=== PATIENT | female | born 1990 | race Caucasian/White ===

== ENCOUNTER → 2018-08-08 16:08 | Outpatient (CLI) | payer OTHER, SELFPAY ==
[2018-08-08 19:29] LABS: Chlamydia Trachomatis by PCR Negative (Negative); Neisserai gonorrhoeae by PCR Negative (Negative); Probe Check PASS; Sample Adequacy Control PASS; Specimen Processing Control PASS
[2018-08-16 15:12] LABS: HPV HC, High Risk Negative (Negative)
== END ==
PROVIDERS: Visit Provider Obstetrics & Gynecology
DX: Z32.01 Encounter for pregnancy test, result positive (principal); Z12.4 Encounter for screening for malignant neoplasm of cervix; Z11.3 Encounter for screening for infections with a predominantly sexual mode of transmission
CPT/HCPCS: 87491; 87591; 87624; 88175; G0145

== ENCOUNTER → 2018-08-22 15:14 | Outpatient (CLI) | payer OTHER, SELFPAY ==
[2018-08-22 15:57] LABS: Absolute Lymphocyte Count 1.55 X10^3/ul (0.83-4.51); Absolute Neutrophil Count 7.1 X10^3/uL (2.0-7.7); Basophil# 0.03 X10^3/uL; Basophil% 0.3 % (0-1); Eosinophil# 0.15 X10^3/uL; Eosinophils% 1.6 % (0-5); Hematocrit 38.7 % (37-47); Lymphocyte # 1.55 X10^3/ul (4.0); Lymphocyte % 16.5 % (19-41); Mean Corp Hgb Conc 33.6 g/gl (32-36); Mean Corpuscular Hgb 29.1 pg (27.0-32.0); Mean Corpuscular Volume 86.6 fL (81-99); Mean Platelet Vol. 8.7 fl (6.2-12.0); Monocyte# 0.56 X10^3/uL; Neutrophil # 7.06 X10^3/uL (2.7-7.7); Neutrophil % 75.4 % (47-70); Platelet Count 323 K/mm3 (150-450); RBC Distribution Width CV 12.7 % (11.6-14.6); RBC Distribution Width SD 40.4 fl (35.1-43.9); Red Blood Count 4.47 M/mm3 (4.2-5.4); White Blood Count 9.4 K/mm3 (4.4-11.0)
[2018-08-22 16:00] LABS: POSITIVE COUNT NO; POSITIVE DIFFERENTIAL NO; POSITIVE MORPHOLOGY NO
[2018-08-22 16:28] LABS: Thyroid Stim Hormone (TSH) 0.65 uIU/mL (0.358-3.74)
[2018-08-22 16:57] LABS: HIV - WCH Non-Reactive (Nonreactive)
[2018-08-22 17:43] LABS: Color, Urine Yellow (Yellow); Glucose, Dipstick Normal (Normal); Ketone-Dipstick Negative (Negative); Leukocyte Esterase-Dipstick 25 /ul (Negative); Nitrite-Dipstick Negative (Negative); Occult Blood-Urine Negative /ul (Negative); Protein-Dipstick Negative (Negative); Urine Bilirubin Dipstick Negative (Negative); Urine Clarity Clear (Clear); Urine Urobilinogen Normal (Normal)
[2018-08-22 18:03] LABS: COTININE Drug Screen Negative (<200 ng/mL)
[2018-08-22 18:07] LABS: Amphetamine Urine VISTA NEGATIVE (<1000 ng/mL); Barbiturate Urine VISTA NEGATIVE (< 200 ng/mL); Benzodiazepine Urine VISTA NEGATIVE (< 200 ng/mL); Cocaine Urine VISTA NEGATIVE (< 300 ng/mL); Ecstacy Urine VISTA NEGATIVE (< 500 ng/mL); Methadone Urine VISTA NEGATIVE (< 300 ng/mL); PCP Urine VISTA NEGATIVE (< 25 ng/mL); THC Urine VISTA NEGATIVE (< 50 ng/mL); Vista UDS pH Range 6
[2018-08-24 04:14] LABS: Prenatal RPR NONREACTIVE (NONREACTIVE)
[2018-08-24 15:37] LABS: HEPATITIS B SURFACE AG Negative (Negative); Hep C Antibodies <0.1 s/co ratio (0.0-0.9)
== END ==
PROVIDERS: Visit Provider Obstetrics & Gynecology
DX: Z34.81 Encounter for supervision of other normal pregnancy, first trimester (principal)
CPT/HCPCS: 36415; 80307; 81002; 84443; 85025; 86703; 86762; 86803; 87340

== ENCOUNTER → 2018-12-25 16:23 | Outpatient (CLI) | payer OTHER, SELFPAY ==
[2017-03-29 07:26] VITALS: BMI 29.7
[2018-12-25 18:00] LABS: Hematocrit 34.2 % (37-47); Hemoglobin 11.7 g/dl (12.0-15.0); Mean Corp Hgb Conc 34.2 g/gl (32-36); Mean Corpuscular Hgb 31.3 pg (27.0-32.0); Mean Corpuscular Volume 91.4 fL (81-99); Mean Platelet Vol. 9.1 fl (6.2-12.0); Platelet Count 278 K/mm3 (150-450); RBC Distribution Width CV 13.2 % (11.6-14.6); RBC Distribution Width SD 42.6 fl (35.1-43.9); Red Blood Count 3.74 M/mm3 (4.2-5.4); Scan Indicated on CBC? Y/N NO; White Blood Count 8.8 K/mm3 (4.4-11.0)
[2018-12-25 18:05] LABS: Glucose Challenge Gest 1H 50g 91 mg/dL (70-140)
== END ==
PROVIDERS: Visit Provider Obstetrics & Gynecology
DX: Z34.82 Encounter for supervision of other normal pregnancy, second trimester (principal)
CPT/HCPCS: 36415; 82950; 85027

== ENCOUNTER → 2019-02-27 | Outpatient (CLI) | payer OTHER, SELFPAY ==
[2017-03-29 07:26] VITALS: BMI 29.7
== END | disposition home or self-care (01) ==
PROVIDERS: Referring Provider Obstetrics & Gynecology; Visit Provider Obstetrics & Gynecology
DX: Z36.85 Encounter for antenatal screening for Streptococcus B (principal)
CPT/HCPCS: 87081

== ENCOUNTER 2019-03-20 09:30 | Inpatient (IN) | payer OTHER, SELFPAY ==
[2017-03-29 07:26] VITALS: BMI 29.7
[2019-03-20] MEDS: Lactated Ringers 1,000 ML 50 ML IV ×2 (10:00→13:50)
[2019-03-20 10:29] VITALS: BMI 31.6
[2019-03-20 10:29] LABS: Absolute Lymphocyte Count 1.17 X10^3/ul (0.83-4.51); Absolute Neutrophil Count 6.9 X10^3/uL (2.0-7.7); Basophil# 0.02 X10^3/uL; Basophil% 0.2 % (0-1); Eosinophil# 0.08 X10^3/uL; Eosinophils% 0.9 % (0-5); Hematocrit 38.7 % (37-47); Hemoglobin 13.3 g/dl (12.0-15.0); Lymphocyte # 1.17 X10^3/ul (4.0); Lymphocyte % 13.2 % (19-41); Mean Corp Hgb Conc 34.4 g/gl (32-36); Mean Corpuscular Hgb 29.2 pg (27.0-32.0); Mean Corpuscular Volume 84.9 fL (81-99); Mean Platelet Vol. 9.5 fl (6.2-12.0); Monocyte# 0.66 X10^3/uL; Monocyte% 7.5 % (0-10); Neutrophil # 6.88 X10^3/uL (2.7-7.7); Neutrophil % 77.9 % (47-70); Platelet Count 220 K/mm3 (150-450); RBC Distribution Width CV 13.7 % (11.6-14.6); RBC Distribution Width SD 41.9 fl (35.1-43.9); Red Blood Count 4.56 M/mm3 (4.2-5.4); White Blood Count 8.8 K/mm3 (4.4-11.0)
[2019-03-20 10:31] LABS: POSITIVE COUNT NO; POSITIVE DIFFERENTIAL NO; POSITIVE MORPHOLOGY NO
[2019-03-20] MEDS: Oxytocin 30 units/NS 500 ml 30 UNITS/500 ML IV.SOLN IV (10:47)
--- NOTE | 2019-03-20 11:38 | PN.OBGYN_ITS ---
Subjective: Comfortable Objective: Afeb VSS - Physical Exam General: Alert, Oriented x3, Cooperative, No apparent distress Lungs: Clear to auscultation, Normal air movement Cardiovascular: Regular rate, Regular Rhythm Abdomen: Soft, Non Tender, Non-Distended, Gravid, Appropriate for Gestational Age Extremities: No edema Skin: No rashes Neurological: Neuro grossly intact Psych/Mental Status: Normal Affect Comment: CE 80/-2 Weight: 208 lb 3.2 oz Body Mass Index (BMI) 31.6 Laboratory Tests Past 24 Hrs 03/20/19 03/20/19 10:05 10:05 WBC 8.8 RBC 4.56 Hgb 13.3 Hct 38.7 MCV 84.9 MCH 29.2 MCHC 34.4 RDW 13.7 RDW Differential 41.9 Plt Count 220 MPV 9.5 Immature Gran % (Auto) 0.300 Neut % (Auto) 77.9 H Lymph % (Auto) 13.2 L [place] % (Auto) 7.5 Eos % (Auto) 0.9 Baso % (Auto) 0.2 Absolute Neuts (auto) 6.9 Absolute Lymphs (auto) 1.17 Total Counted Not Reportable Blood Type Pending Antibody Screen Pending Medical Necessity - Tobacco Use Smoking Status: Never smoker Assessment/Plan CAT 1 FHR tracing. AROM performed with clear fluid noted. Pitocin started.
[2019-03-20] MEDS: fentaNYL-bupivacaine (epidural) 100 ML BAG EPIDURAL (14:39)
[2019-03-20] MEDS: Oxytocin 30 units/NS 500 ml 30 UNITS/500 ML IV.SOLN 167 UNITS IV (15:27)
--- NOTE | 2019-03-20 15:39 | PCM.OPRPT ---
Vaginal Delivery Maternal Presentation: Elective Induction [id number] ega admitted for elective induction of labor Method of Induction: Pitocin Amniotic Membrane Rupture Type: Artificial Rupture of Membrane time: 1030 Amniotic Fluid Description: Clear Final DARRELL: 03/23/19 Final DARRELL Source: US <20 weeks Gestational age: 39 Weeks and 4 Days Date of Procedure: 03/20/19 Pre-Operative Diagnosis: labor Post-Operative Diagnosis: same Surgery/ Procedure Performed: Spontaneous Vaginal Delivery Anesthesiologist: Jordy Ferrer Type of Anesthesia: Epidural Description of Procedure: Progressed rapidly from 4 cm to FD. Pushed for about 2 contractions to deliver a live female without complication. There was a loose nuchal cord x 2 that was reduced prior to delivery of the body. Delayed cord clamping was employed. The cord was clamped and cut. The placenta delivered spontaneously intact with an eccentrically located 3VC. Inspection revealed an intact cervix, vagina and perineum. Presentation: Vertex Placental Delivery Description: Spontaneous Placenta Disposition: [facility] Percentage of Placenta Abruption: 0 Cord Vessel Description: 3 Vessels Nuchal Cord Compression: Without compression Cord Entanglement: Around neck x 2, loose Drain: Benson to straight drain Estimated Blood Loss: 200cc Infant A gender: Female (1 minute): 8 (5 minute): 9 Episiotomy Description: None Laceration: None Medications given after delivery: IV Pitocin Complications: None
--- NOTE | 2019-03-20 15:44 | DCINST_ITS ---
Discharge Diet: No Restrictions Discharge Activity: Return to Normal Activity, May Drive, May Shower Return to work on:: 05/06/19 May shower in (days): 0 May resume sexual activity in: 4-6 weeks Call your doctor if your incision/area has: Continuous Slow Oozing, Sudden Increased Bleeding, Increased Pain/ Swelling, Foul Smelling Discharge Call your doctor if you observe: Fever of 101 or Higher, Inability to urinate, Inability to have a bowel movement, Using more than one pad per hour, Shortness of breath, Chest pain, Calf discomfort, Uncontrolled pain Cleanse incision/area with: Soap & Water Additional Instructions: If you experience any of the following, contact your healthcare provider. * Bleeding that soaks a pad every hour for 2 hours * Fever 100.4 or higher * Unrelieved incision or abdominal pain * Swelling, redness, discharge or bleeding from your incision or episiotomy site * Your incision begins to separate * Problems urinating (including inability to urinate or burning while urinating). * Visual changes * Severe headache * Flu-like symptoms * Pain or redness in one of both of your breasts * Pain, warmth, tenderness or swelling in your legs, especially the calf area * Frequent nausea and vomiting * Symptoms of depression or anxiety If you experience any of the following, call 911 or go to the nearest Emergency Room. * Chest pain * Problems breathing * Seizure activity * Partial or complete paralysis of a body part, slurred speech, weakness or drooping of the face, or a sudden inability to walk or hold your balance Allergies/Adverse Reactions: Allergies No Known Allergies Allergy (Verified 03/20/19 11:00) Medications to take at Discharge Ibuprofen [Motrin] 800 mg PO TID PRN PRN #30 tablet 03/29/17 Ibuprofen [Motrin] 600 mg PO Q6H PRN PRN #30 tab 03/20/19 Vits [Prenatabs FA ] 1 tablet PO DAILY 03/20/19 The following prescriptions were given: Ibuprofen [Motrin] 600 mg PO Q6H PRN PRN #30 tab PRN Reason: pain or cramping Please Follow Up With: Rudy Rock MD When: 6 weeks Primary Care Physician: Rudy Griffiths MD [Primary Care Provider] - Test Results: Test results from this visit will be discussed in further detail at your follow- up appointment, if applicable. Proposed Discharge Date: 03/22/19
[2019-03-20] MEDS: Oxytocin 30 units/NS 500 ml 30 UNITS/500 ML IV.SOLN 334 UNITS IV (15:57)
[2019-03-20] MEDS: 0.9% Saline Lock 10 ML Syringe IV (17:51)
[2019-03-20 20:40] VITALS: BP 121/69; PULSE 101; RESP 16; TEMP 37.1; O2SAT 98
[2019-03-21 00:34] VITALS: BP 127/59; PULSE 78; RESP 18; TEMP 36.6; O2SAT 98
[2019-03-21] MEDS: Ibuprofen 600 MG Tablet PO (04:13)
[2019-03-21 04:15] VITALS: BP 118/61; PULSE 74; RESP 16; TEMP 36.6; O2SAT 97
[2019-03-21 04:28] LABS: Hematocrit 35.6 % (37-47); Hemoglobin 12.1 g/dl (12.0-15.0); Mean Corpuscular Hgb 28.9 pg (27.0-32.0); Mean Corpuscular Volume 85.2 fL (81-99); Mean Platelet Vol. 9.1 fl (6.2-12.0); Platelet Count 202 K/mm3 (150-450); RBC Distribution Width CV 13.9 % (11.6-14.6); RBC Distribution Width SD 42.6 fl (35.1-43.9); Red Blood Count 4.18 M/mm3 (4.2-5.4); White Blood Count 11.3 K/mm3 (4.4-11.0)
[2019-03-21 04:32] LABS: Scan Indicated on CBC? Y/N NO
--- NOTE | 2019-03-21 06:08 | PCM.PROGNOTE ---
Subjective: No specific complaints. Bleeding light. Breast feeding. Objective: Afeb VSS Hgb stable - Physical Exam General: Alert, Oriented x3, Cooperative, No apparent distress Abdomen: Soft, Non Tender, Non-Distended Extremities: No edema Skin: No rashes Neurological: Neuro grossly intact Psych/Mental Status: Normal Affect Comment: Lochia light Vital Signs Temp Pulse Resp BP Pulse Ox 97.8 F 74 16 118/61 97 03/21/19 04:15 03/21/19 04:15 03/21/19 04:15 03/21/19 04:15 03/21/19 04:15 Oxygen Delivery Method Room Air Weight: 208 lb 3.2 oz Body Mass Index (BMI) 31.6 Intake and Output for Last 24 Hours 03/19/19 03/20/19 03/21/19 23:59 23:59 23:59 Intake Total 1894 / 1894 Output Total 1050 / 1050 650 / 650 Balance 844 / 844 -650 / -650 Laboratory Tests Past 24 Hrs 03/20/19 03/20/19 03/21/19 10:05 10:05 04:05 WBC 8.8 11.3 H RBC 4.56 4.18 L Hgb 13.3 12.1 Hct 38.7 35.6 L MCV 84.9 85.2 MCH 29.2 28.9 MCHC 34.4 34.0 RDW 13.7 13.9 RDW Differential 41.9 42.6 Plt Count 220 202 MPV 9.5 9.1 Immature Gran % (Auto) 0.300 Neut % (Auto) 77.9 H Lymph % (Auto) 13.2 L [place] % (Auto) 7.5 Eos % (Auto) 0.9 Baso % (Auto) 0.2 Absolute Neuts (auto) 6.9 Absolute Lymphs (auto) 1.17 Total Counted Not Reportable Blood Type O POSITIVE Antibody Screen NEGATIVE Medical Necessity - Tobacco Use Smoking Status: Never smoker Assessment/Plan Doing well on PP day#1. Would like discharge home today. Home going instructions and warnings given.
--- NOTE | 2019-03-21 06:10 | PCM.DC.SUM ---
Discharge Date and Diagnosis Date of Admission: 03/20/19 Date of Discharge: 03/21/19 - Primary Discharge Diagnosis s/p Hospital Course and Treatment Operations: None Procedures: - - Summary of Care Provided: The patient is a 28 year old F [admitted for elective induction of labor. Pitocin induction resulted in delivery of a live without complication. course unremarkable. Discharged home on PP day#1.] - Physical Exam Vital Signs Temp Pulse Resp BP Pulse Ox 97.8 F 74 16 118/61 97 03/21/19 04:15 03/21/19 04:15 03/21/19 04:15 03/21/19 04:15 03/21/19 04:15 Oxygen Delivery Method Room Air Weight: 208 lb 3.2 oz Body Mass Index (BMI) 31.6 Intake and Output for Last 24 Hours 03/19/19 03/20/19 03/21/19 23:59 23:59 23:59 Intake Total 1894 / 1894 Output Total 1050 / 1050 650 / 650 Balance 844 / 844 -650 / -650 Laboratory Tests Past 24 Hrs 03/20/19 03/20/19 03/21/19 10:05 10:05 04:05 WBC 8.8 11.3 H RBC 4.56 4.18 L Hgb 13.3 12.1 Hct 38.7 35.6 L MCV 84.9 85.2 MCH 29.2 28.9 MCHC 34.4 34.0 RDW 13.7 13.9 RDW Differential 41.9 42.6 Plt Count 220 202 MPV 9.5 9.1 Immature Gran % (Auto) 0.300 Neut % (Auto) 77.9 H Lymph % (Auto) 13.2 L [place] % (Auto) 7.5 Eos % (Auto) 0.9 Baso % (Auto) 0.2 Absolute Neuts (auto) 6.9 Absolute Lymphs (auto) 1.17 Total Counted Not Reportable Blood Type O POSITIVE Antibody Screen NEGATIVE Discharge Diet: No Restrictions Discharge Activity: Return to Normal Activity, May Drive, May Shower Return to work on:: 05/06/19 May shower in (days): 0 May resume sexual activity in: 4-6 weeks Call your doctor if your incision/area has: Continuous Slow Oozing, Sudden Increased Bleeding, Increased Pain/ Swelling, Foul Smelling Discharge Call your doctor if you observe: Fever of 101 or Higher, Inability to urinate, Inability to have a bowel movement, Using more than one pad per hour, Shortness of breath, Chest pain, Calf discomfort, Uncontrolled pain Cleanse incision/area with: Soap & Water Home Medications: Medications to take at Discharge Ibuprofen [Motrin] 800 mg PO TID PRN PRN #30 tablet 03/29/17 Ibuprofen [Motrin] 600 mg PO Q6H PRN PRN #30 tab 03/20/19 Vits [Prenatabs FA ] 1 tablet PO DAILY 03/20/19 Following Prescrptions Were Given to Patient: Ibuprofen [Motrin] 600 mg PO Q6H PRN PRN #30 tab PRN Reason: pain or cramping Primary Care Physician: Rudy Griffiths MD [Primary Care Provider] - Please Follow Up With: Rudy Rock MD When: 6 weeks Disposition: Home Minutes spent on discharge:: 15 Patient Condition:: Good Medical Necessity - Tobacco Use Smoking Status: Never smoker Meaningful Use Info Meaningful Use Diagnoses (Choose all that apply): None applicable
[2019-03-21 08:47] VITALS: BP 107/60; PULSE 71; RESP 18; TEMP 36.3
[2019-03-21 12:15] VITALS: BP 110/56; PULSE 78; RESP 18; TEMP 36.6
[2019-03-21] MEDS: Prenatal Vits Tablet 1 TABLET PO (13:41)
[2019-03-21 17:00] VITALS: BP 109/67; PULSE 80; RESP 18; TEMP 36.4
== END 2019-03-21 17:05 | disposition home or self-care (01) | DRG 807 ==
PROVIDERS: Admitting Provider Obstetrics & Gynecology; Referring Provider Obstetrics & Gynecology; Visit Provider Obstetrics & Gynecology
DX: O69.81X0 Labor and delivery complicated by cord around neck, without compression, not applicable or unspecified (principal); Z37.0 Single live birth; Z3A.39 39 weeks gestation of pregnancy
CPT/HCPCS: 59025; 59050; 85025; 85027; 86850; 86900; 99218; J7120; A4216; G0378

== ENCOUNTER → 2020-05-29 15:48 | Outpatient (CLI) | payer OTHER, SELFPAY ==
[2020-06-03 14:44] LABS: HPV Reflexed? NOT INDICATED
== END ==
PROVIDERS: Visit Provider Obstetrics & Gynecology
DX: Z12.4 Encounter for screening for malignant neoplasm of cervix (principal)
CPT/HCPCS: 88175; G0145

== ENCOUNTER → 2020-10-13 15:59 | Outpatient (CLI) | payer OTHER, SELFPAY ==
[2020-10-15 20:07] LABS: Chlamydia By Nucleic Acid AMP Negative (Negative)
[2020-10-15 22:47] LABS: Gonococcus By Nucleic Acid AMP Negative (Negative)
== END ==
PROVIDERS: Visit Provider Obstetrics & Gynecology
DX: Z11.3 Encounter for screening for infections with a predominantly sexual mode of transmission (principal)
CPT/HCPCS: 87491; 87591

== ENCOUNTER → 2020-10-20 10:45 | Outpatient (CLI) | payer OTHER, SELFPAY ==
[2020-10-20 11:00] LABS: Bacteria 0 SEEN /hpf (None Seen); Mucous, Urine 0 SEEN /hpf (<or=2+); Red Blood Cells-Urine 0 SEEN /hpf (0-5); White Blood Cells 0 SEEN /hpf (0-5)
[2020-10-20 11:45] LABS: Color, Urine Yellow (Yellow); Glucose, Dipstick Normal (Normal); Ketone-Dipstick Negative (Negative); Leukocyte Esterase-Dipstick 25 /ul (Negative); Nitrite-Dipstick Negative (Negative); Occult Blood-Urine Negative /ul (Negative); Protein-Dipstick Negative (Negative); Urine Bilirubin Dipstick Negative (Negative); Urine Clarity Clear (Clear); Urine Urobilinogen Normal (Normal)
[2020-10-20 12:01] LABS: Squamous Epithelial Cells - UA 0-5 SEEN /hpf (5-10)
== END ==
PROVIDERS: Visit Provider Obstetrics & Gynecology
DX: R35.0 Frequency of micturition (principal)
CPT/HCPCS: 81001; 87086; 87088

== ENCOUNTER → 2020-10-28 16:37 | Outpatient (CLI) | payer OTHER, SELFPAY ==
[2020-10-28 17:29] LABS: Absolute Lymphocyte Count 1.84 X10^3/uL (0.83-4.51); Absolute Neutrophil Count 6.6 X10^3/uL (2.0-7.7); Basophil# 0.06 X10^3/uL; Basophil% 0.6 % (0-1); Eosinophil# 0.13 X10^3/uL; Eosinophils% 1.4 % (0-5); Hematocrit 38.8 % (37-47); Hemoglobin 12.9 g/dL (12.0-15.0); Lymphocyte # 1.84 X10^3/ul (4.0); Lymphocyte % 19.8 % (19-41); Mean Corp Hgb Conc 33.2 g/dL (32-36); Mean Corpuscular Hgb 28.9 pg (27.0-32.0); Mean Corpuscular Volume 86.8 fL (81-99); Monocyte# 0.63 X10^3/uL; Monocyte% 6.8 % (0-10); NRBC Flagged by Analyzer 0 % (0-5); Neutrophil # 6.61 X10^3/uL (2.7-7.7); Neutrophil % 71.2 % (47-70); Platelet Count 376 K/mm3 (150-450); RBC Distribution Width CV 12.6 % (11.6-14.6); RBC Distribution Width SD 39.8 fl (35.1-43.9); Red Blood Count 4.47 M/mm3 (4.2-5.4); White Blood Count 9.3 K/mm3 (4.4-11.0)
[2020-10-28 17:37] LABS: Color, Urine Yellow (Yellow); Glucose, Dipstick Normal (Normal); Ketone-Dipstick Negative (Negative); Leukocyte Esterase-Dipstick Negative /ul (Negative); Nitrite-Dipstick Negative (Negative); Occult Blood-Urine Negative /ul (Negative); Protein-Dipstick Negative (Negative); Urine Bilirubin Dipstick Negative (Negative); Urine Clarity Clear (Clear); Urine Urobilinogen Normal (Normal)
[2020-10-28 17:40] LABS: Amphetamine Urine VISTA NEGATIVE (<1000 ng/mL); Barbiturate Urine VISTA NEGATIVE (< 200 ng/mL); Benzodiazepine Urine VISTA NEGATIVE (< 200 ng/mL); Cocaine Urine VISTA NEGATIVE (< 300 ng/mL); Ecstacy Urine VISTA NEGATIVE (< 500 ng/mL); Methadone Urine VISTA NEGATIVE (< 300 ng/mL); PCP Urine VISTA NEGATIVE (< 25 ng/mL); THC Urine VISTA NEGATIVE (< 50 ng/mL); Vista UDS pH Range 6
[2020-10-29 03:41] LABS: Prenatal RPR NONREACTIVE (NONREACTIVE)
[2020-10-29 09:25] LABS: HIV - WCH Non-Reactive (Nonreactive); Hepatitis B Surface Antigen Non-Reactive (Nonreactive); Hepatitis C Antibody Non-Reactive (Nonreactive); Rubella IgG Reactive (Nonreactive)
== END ==
PROVIDERS: Visit Provider Obstetrics & Gynecology
DX: Z34.81 Encounter for supervision of other normal pregnancy, first trimester (principal)
CPT/HCPCS: 36415; 80307; 81002; 84443; 85025; 86703; 86762; 86803; 87340

== ENCOUNTER → 2021-03-17 15:44 | Outpatient (CLI) | payer OTHER, SELFPAY ==
[2021-03-17 17:24] LABS: Glucose Challenge Gest 1H 50g 101 mg/dL (70-140)
[2021-03-17 17:37] LABS: Hematocrit 35.4 % (37-47); Hemoglobin 11.5 g/dL (12.0-15.0); Mean Corp Hgb Conc 32.5 g/dL (32-36); Mean Corpuscular Hgb 28.7 pg (27.0-32.0); Mean Corpuscular Volume 88.3 fL (81-99); Mean Platelet Vol. 9.7 fl (6.2-12.0); Platelet Count 305 K/mm3 (150-450); RBC Distribution Width CV 12.9 % (11.6-14.6); RBC Distribution Width SD 42.1 fl (35.1-43.9); Red Blood Count 4.01 M/mm3 (4.2-5.4); White Blood Count 10.1 K/mm3 (4.4-11.0)
== END ==
PROVIDERS: Visit Provider Obstetrics & Gynecology
DX: Z34.83 Encounter for supervision of other normal pregnancy, third trimester (principal)
CPT/HCPCS: 36415; 82950; 85027

== ENCOUNTER → 2021-05-14 15:47 | Outpatient (CLI) | payer OTHER, SELFPAY | PROVIDERS: Visit Provider Obstetrics & Gynecology | DX: Z36.85 Encounter for antenatal screening for Streptococcus B (principal) | CPT/HCPCS: 87081 ==

== ENCOUNTER 2021-06-04 07:00 | Inpatient (IN) | payer OTHER, SELFPAY ==
[2021-06-04] VITALS (31 sets, daily range): BP systolic 94–134; BP diastolic 51–78; PULSE 64–196; RESP 16; TEMP 36.3–37; O2SAT 97–100; BMI 31.7
--- NOTE | 2021-06-04 07:44 | HP.PCM.OB_ITS ---
History and Physical Date of Admission: 06/04/21 Chief complaint: Induction of labor at term History of present illness: 30-year-old G3, P2 at 39 weeks and 5 days with DARRELL: 06/06/2021 by 8-week ultrasound arrives for induction of labor at term. Denies headache, visual changes, chest pain, shortness of breath, nausea vomiting, right upper quadrant pain. Patient states good movement. Obstetric history: G1: 40-week male 03/29/2017 G2: 39-week female 03/20/2019 G3: Current Past medical history: None Medications: vitamin Past surgical history: [place] teeth extraction Allergies: No known drug allergies Social history: Denies smoking, alcohol use, drug use Family history: Denies history DVT or PE Review of systems: Besides above pertinent positives a full review of systems was performed and found to be negative Physical exam: General: Normal-appearing no acute distress HEENT: Normocephalic atraumatic no cervical lymphadenopathy Cardiac/respiratory: Nonlabored breathing, no use of accessory muscles Abdomen: Soft, nontender, gravid Pelvic: CE 3/60/-3 AROM clear fluid Extremities: No peripheral edema normal peripheral pulses Psych: Normal affect normal demeanor nonpressured speech Assessment and plan: 30-year-old at 39 weeks and 5 days for induction of labor at term Admit labor and delivery CEFM GBS negative Pitocin and AROM induction Anesthesia to see Routine orders
[2021-06-04] MEDS: Lactated Ringers 1,000 ML 50 ML IV (07:50)
[2021-06-04] MEDS: Oxytocin 30 units/NS 500 ml 30 UNITS/500 ML IV.SOLN IV (08:06)
[2021-06-04 08:09] LABS: Absolute Lymphocyte Count 1.59 X10^3/uL (0.83-4.51); Absolute Neutrophil Count 5.2 X10^3/uL (2.0-7.7); Basophil# 0.04 X10^3/uL; Basophil% 0.5 % (0-1); Eosinophil# 0.13 X10^3/uL; Eosinophils% 1.7 % (0-5); Hematocrit 35.5 % (37-47); Hemoglobin 11.6 g/dL (12.0-15.0); Lymphocyte # 1.59 X10^3/ul (0.83-4.51); Lymphocyte % 20.7 % (19-41); Mean Corp Hgb Conc 32.7 g/dL (32-36); Mean Corpuscular Hgb 28.4 pg (27.0-32.0); Mean Corpuscular Volume 86.8 fL (81-99); Mean Platelet Vol. 9.5 fl (6.2-12.0); Monocyte# 0.64 X10^3/uL; Monocyte% 8.3 % (0-10); NRBC Flagged by Analyzer 0 % (0-5); Neutrophil # 5.22 X10^3/uL (2.7-7.7); Neutrophil % 68.1 % (47-70); Platelet Count 239 K/mm3 (150-450); RBC Distribution Width CV 13.6 % (11.6-14.6); RBC Distribution Width SD 42.7 fl (35.1-43.9); Red Blood Count 4.09 M/mm3 (4.2-5.4); White Blood Count 7.7 K/mm3 (4.4-11.0)
[2021-06-04] MEDS: Lactated Ringers 500 ML 999 ML IV (08:14)
[2021-06-04] MEDS: fentaNYL-bupivacaine (epidural) 100 ML BAG EPIDURAL (11:02)
[2021-06-04] MEDS: Oxytocin 30 units/NS 500 ml 30 UNITS/500 ML IV.SOLN 334 UNITS IV (12:51)
--- NOTE | 2021-06-04 13:02 | EX.PCM.OBRPT ---
Vaginal Delivery Findings Description of Procedure: Normal spontaneous vaginal delivery of a viable female infant, vertex LAVINIA. Head and shoulders delivered with ease. Cord cut and clamped. Baby handed off to mom. Placenta delivered via cord traction and fundal massage. No lacerations noted. EBL 250cc APGARs 8/9
[2021-06-05] MEDS: Ibuprofen 600 MG Tablet PO (01:24)
[2021-06-05 04:31] VITALS: BP 100/56; PULSE 65; RESP 18; TEMP 36.4
[2021-06-05 08:30] VITALS: BP 102/64; PULSE 73; RESP 16; TEMP 36.3; O2SAT 98
--- NOTE | 2021-06-05 11:22 | PCM.DC ---
Discharge Instructions Diet Discharge Diet: No restrictions Activity Discharge Activity: Return to Normal Activity, May Drive and May Shower May resume sexual activity in: 4-6 weeks Weight Bearing Status: Weight bearing as tolerated Dressing / Incision Call your doctor if your incision/area has: Continuous Slow Oozing and Foul Smelling Discharge Call your doctor if you observe: Fever of 101 or Higher, Shortness of breath and Chest pain Follow Up Care Please Follow Up With: Ty Tellez MD When: 2-week telehealth visit, 4 to 6-week visit Test Results: Test results from this visit will be discussed in further detail at your follow-up appointment, if applicable. Discharge Plan Admission Admit Date/Time: 06/04/21 07:00 Attending Provider: Ty Tellez Primary Care Provider: Rudy Griffiths Discharge Orders/Prescriptions Prescriptions: No Action Prenatabs FA 1 TABLET tablet 1 tab PO DAILY RF: 0 Disposition Discharge Orders: Discharge Patient (Routine); Ordered 06/05/21 Ordered By: Dr. Ty Tellez
--- NOTE | 2021-06-05 11:22 | PN.OBGYN_ITS ---
Subjective Subjective No overnight complaints. Pain well controlled. Objective Data Objective Data Vital Signs: Vital Signs Temp Pulse Resp BP Pulse Ox 97.5 F L 65 18 100/56 L 97 06/05/21 04:31 06/05/21 04:31 06/05/21 04:31 06/05/21 04:31 06/04/21 20:00 Oxygen Delivery Method Room Air Weight: 208 lb 9.6 oz Body Mass Index (BMI) 31.7 Intake & Output: Intake and Output for Last 24 Hours 06/03/21 06/04/21 06/05/21 23:59 23:59 23:59 Intake Total 1642.27 / 1642.27 Output Total 1999 Balance -357.73 / -357.73 Lab / Micro Data Result Diagrams: 06/04/21 07:50 Micro: Microbiology 06/04/21 07:56 Mucosa - Nose SARS-CoV-2 Antigen (Rapid) - Final Physical Exam Const alert, oriented x3, no apparent distress, average body habitus, healthy appearing and well nourished HEENT normocephalic and moist oral mucous membranes Head and Scalp: atraumatic Neck full ROM Resp normal respiratory effort, no retractions and no use of accessory muscles Extremity normal to inspection, full ROM and no clubbing, cyanosis or edema Psych mental status grossly normal, affect normal, speech normal and activity/motor behavior normal Assessment & Plan (1) : PLAN: day 1. Breast-feeding. Pain well controlled. 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
[2021-06-05 13:45] VITALS: BP 105/53; PULSE 73; RESP 16; TEMP 36.3; O2SAT 96
== END 2021-06-05 14:30 | disposition home or self-care (01) | DRG 807 ==
PROVIDERS: Obstetrics & Gynecology; Admitting Provider Obstetrics & Gynecology; Visit Provider Obstetrics & Gynecology
DX: O80 Encounter for full-term uncomplicated delivery (principal); Z37.0 Single live birth; Z3A.39 39 weeks gestation of pregnancy
CPT/HCPCS: 59025; 59050; 85025; 86850; 86900; 86901; 87426; 99218; J7120; G0378

== ENCOUNTER → 2022-10-18 | Outpatient (CLI) | payer OTHER, SELFPAY ==
[2022-10-18 17:27] LABS: Absolute Lymphocyte Count 1.75 X10^3/uL (0.83-4.51); Absolute Neutrophil Count 6.2 X10^3/uL (2.0-7.7); Basophil# 0.05 X10^3/uL; Basophil% 0.6 % (0-1); Eosinophil# 0.19 X10^3/uL; Eosinophils% 2.2 % (0-5); Hematocrit 36.1 % (37-47); Hemoglobin 12.3 g/dL (12.0-15.0); Lymphocyte # 1.75 X10^3/ul (0.83-4.51); Mean Corp Hgb Conc 34.1 g/dL (32-36); Mean Corpuscular Hgb 29.7 pg (27.0-32.0); Mean Corpuscular Volume 87.2 fL (81-99); Mean Platelet Vol. 8.8 fl (6.2-12.0); Monocyte# 0.58 X10^3/uL; Monocyte% 6.6 % (0-10); NRBC Flagged by Analyzer 0 % (0-5); Neutrophil # 6.16 X10^3/uL (2.7-7.7); Neutrophil % 70.3 % (47-70); Platelet Count 337 K/mm3 (150-450); RBC Distribution Width CV 12.1 % (11.6-14.6); RBC Distribution Width SD 38.6 fl (35.1-43.9); Red Blood Count 4.14 M/mm3 (4.2-5.4); White Blood Count 8.8 K/mm3 (4.4-11.0)
[2022-10-18 19:24] LABS: HIV - WCH Non-Reactive (Nonreactive); Hepatitis B Surface Antigen Non-Reactive (Nonreactive); Hepatitis C Antibody Non-Reactive (Nonreactive); Rubella IgG Reactive (Nonreactive); Syphilis Antibodies Non-reactive
[2022-10-20 16:24] LABS: V-Zoster IgG (Immunity) 603 index (Immune >165)
[2022-10-21 06:08] LABS: Chlamydia By Nucleic Acid AMP Negative (Negative)
[2022-10-21 10:43] LABS: Gonococcus By Nucleic Acid AMP Negative (Negative)
== END | disposition home or self-care (01) ==
LOC: WOBLAB 16:25
PROVIDERS: Visit Provider Obstetrics & Gynecology
DX: Z34.81 Encounter for supervision of other normal pregnancy, first trimester (principal)
CPT/HCPCS: 36415; 85025; 86703; 86762; 86780; 86787; 86803; 87086; 87088; 87340; 87491; 87591

== ENCOUNTER → 2023-02-09 | Outpatient (CLI) | payer OTHER, SELFPAY ==
[2023-02-09 16:54] LABS: Absolute Lymphocyte Count 0.83 X10^3/uL (0.83-4.51); Absolute Neutrophil Count 9.5 X10^3/uL (2.0-7.7); Basophil# 0.03 X10^3/uL; Basophil% 0.3 % (0-1); Hematocrit 31.2 % (37-47); Hemoglobin 10.5 g/dL (12.0-15.0); Lymphocyte # 0.83 X10^3/ul (0.83-4.51); Lymphocyte % 7.8 % (19-41); Mean Corp Hgb Conc 33.7 g/dL (32-36); Mean Corpuscular Hgb 30.5 pg (27.0-32.0); Mean Corpuscular Volume 90.7 fL (81-99); Mean Platelet Vol. 9.1 fl (6.2-12.0); Monocyte% 1.9 % (0-10); NRBC Flagged by Analyzer 0 % (0-5); Neutrophil % 88.7 % (47-70); Platelet Count 282 K/mm3 (150-450); RBC Distribution Width CV 12.9 % (11.6-14.6); RBC Distribution Width SD 42.3 fl (35.1-43.9); Red Blood Count 3.44 M/mm3 (4.2-5.4); White Blood Count 10.7 K/mm3 (4.4-11.0)
[2023-02-09 17:16] LABS: Glucose Challenge Gest 1H 50g 202 mg/dL (70-140)
[2023-02-09 17:43] LABS: Syphilis Antibodies Non-reactive
== END | disposition home or self-care (01) ==
LOC: WOBLAB 16:27
PROVIDERS: Visit Provider Obstetrics & Gynecology
DX: Z34.82 Encounter for supervision of other normal pregnancy, second trimester (principal)
CPT/HCPCS: 36415; 82950; 85025; 86780

== ENCOUNTER → 2023-04-25 | Outpatient (CLI) | payer OTHER, SELFPAY ==
[2023-04-25 14:20] LABS: Hemoglobin 11.8 g/dL (12.0-15.0); Mean Corp Hgb Conc 33.7 g/dL (32-36); Mean Corpuscular Hgb 30.2 pg (27.0-32.0); Mean Corpuscular Volume 89.5 fL (81-99); Mean Platelet Vol. 9.5 fl (6.2-12.0); Platelet Count 219 K/mm3 (150-450); RBC Distribution Width CV 13.4 % (11.6-14.6); RBC Distribution Width SD 43.8 fl (35.1-43.9); Red Blood Count 3.91 M/mm3 (4.2-5.4)
== END | disposition home or self-care (01) ==
LOC: WOBLAB 14:10
PROVIDERS: Visit Provider Obstetrics & Gynecology
DX: Z34.83 Encounter for supervision of other normal pregnancy, third trimester (principal)
CPT/HCPCS: 36415; 85027; 87081

== ENCOUNTER 2023-05-15 09:16 | Inpatient (IN) | payer OTHER, SELFPAY ==
[2023-05-15] VITALS (17 sets, daily range): BP systolic 100–128; BP diastolic 47–74; PULSE 79–125; RESP 14–16; TEMP 36.4–36.6; O2SAT 93–100; BMI 30.4
[2023-05-15] MEDS: Lactated Ringers 1,000 ML 50 ML IV (09:50)
[2023-05-15 10:22] LABS: Absolute Lymphocyte Count 1.46 X10^3/uL (0.83-4.51); Absolute Neutrophil Count 8.6 X10^3/uL (2.0-7.7); Basophil# 0.05 X10^3/uL; Basophil% 0.5 % (0-1); Eosinophil# 0.07 X10^3/uL; Eosinophils% 0.6 % (0-5); Hematocrit 37.9 % (37-47); Hemoglobin 12.5 g/dL (12.0-15.0); Lymphocyte # 1.46 X10^3/ul (0.83-4.51); Lymphocyte % 13.3 % (19-41); Mean Corpuscular Hgb 30.2 pg (27.0-32.0); Mean Corpuscular Volume 91.5 fL (81-99); Mean Platelet Vol. 9.8 fl (6.2-12.0); Monocyte# 0.73 X10^3/uL; Monocyte% 6.6 % (0-10); NRBC Flagged by Analyzer 0 % (0-5); Neutrophil # 8.57 X10^3/uL (2.7-7.7); Neutrophil % 78.1 % (47-70); Platelet Count 230 K/mm3 (150-450); RBC Distribution Width CV 13.4 % (11.6-14.6); Red Blood Count 4.14 M/mm3 (4.2-5.4)
[2023-05-15 11:13] LABS: Syphilis Antibodies Non-reactive
--- NOTE | 2023-05-15 12:03 | PCM.HP.BLA ---
History and Physical Date of Admission: 05/15/23 Chief complaint: Contractions History present illness: 32-year-old at 39 weeks and 3 days with DARRELL 05/19/2023 arrives with contractions. Denies headache, vision change, chest pain, shortness of breath, nausea vomit, right upper quadrant pain. Patient states good movement. is complicated by GDM A1 Obstetric history: G1: 40-week male G2: 39-week female 7 pounds 14 ounces G3: 39-week female 8 pounds 6 ounces G4: Current Past medical history: None Medications: vitamin Past surgical history: [place] tooth extraction Allergies: No known drug allergies Social history: Denies smoking, alcohol use, drug use Family history: Denies history DVT or PE Review of systems: Besides above pertinent positives a full review of systems was performed and found to be negative Physical exam: Vitals: Blood pressure 120/74 pulse 93 General: Normal-appearing no acute distress HEENT: Normocephalic/atraumatic no cervical lymphadenopathy Cardiac/respiratory: No use accessory muscles, nonlabored breathing Abdomen: Soft, nontender, gravid Pelvic exam: 880/-1. AROM meconium Extremities: No peripheral edema normal peripheral pulses Psych: Normal affect normal demeanor nonpressured speech Labs: White blood cell count 11 hemoglobin 12.5 hematocrit 37.9% platelets 230. RPR nonreactive Assessment plan: Called by nursing patient with contractions and 7 cm. Given admit labor and delivery orders. Called by nursing again with advanced dilation called at that time anterior lip with bulging bag. Patient seen and examined. 32-year-old G4, P3 at 39 weeks and 3 days arrives in labor. 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 We will continue to labor naturally. GBS negative. GDM A1 we will continue to monitor blood sugars
[2023-05-15] MEDS: Oxytocin 10 UNITS/ML Vial IM (12:35)
--- NOTE | 2023-05-15 12:49 | EX.PCM.OBRPT ---
Vaginal Delivery Findings Description of Procedure: Normal spontaneous vaginal delivery of a viable female infant, vertex LAVINIA. Head and shoulders delivered with ease. Cord clamped and cut. Baby handed off to patient. Placenta delivered via cord traction and fundal massage along with maternal efforts, intact. IM and IV Pitocin given per protocol. No lacerations noted. EBL 300 cc Apgars 8/9
[2023-05-15] MEDS: Acetaminophen 500 MG Tablet 1000 MG PO (14:44)
[2023-05-15] MEDS: Oxytocin 15 Units/NS 250ml 15 UNITS/250 ML IV.SOLN 167 UNITS IV (14:46)
[2023-05-16] MEDS: Ibuprofen 600 MG Tablet PO (02:45)
[2023-05-16 04:54] VITALS: BP 115/65; PULSE 76; RESP 14
[2023-05-16 08:11] VITALS: BP 108/64; PULSE 80; RESP 16; TEMP 36.1; O2SAT 98
--- NOTE | 2023-05-16 08:50 | PN.OBGYN_ITS ---
Subjective Subjective No overnight complaints Objective Data Objective Data Vital Signs: Vital Signs Temp Pulse Resp BP Pulse Ox O2 Del Method 97.0 F L 80 16 108/64 98 Room Air 05/16/23 08:11 05/16/23 08:11 05/16/23 08:11 05/16/23 08:11 05/16/23 08:11 05/16/23 08:11 Oxygen Delivery Method Room Air Weight: 200 lb 2 oz Body Mass Index (BMI) 30.4 Intake & Output: Intake and Output for Last 24 Hours 05/14/23 05/15/23 05/16/23 23:59 23:59 23:59 Intake Total 587.5 / 587.5 Output Total 300 / 300 Balance 287.5 / 287.5 Lab / Micro Data 05/15/23 09:50 Labs: Laboratory Results - last 24 hr 05/15/23 09:50: WBC 11.0, RBC 4.14 L, Hgb 12.5, Hct 37.9, MCV 91.5, MCH 30.2, MCHC 33.0, RDW Std Deviation 45.0 H, RDW Coeff of Jose 13.4, Plt Count 230, MPV 9.8, Immature Gran % (Auto) 0.900, Neut % (Auto) 78.1 H, Lymph % (Auto) 13.3 L, [place] % (Auto) 6.6, Eos % (Auto) 0.6, Baso % (Auto) 0.5, Absolute Neuts (auto) 8.6 H, Absolute Lymphs (auto) 1.46, Nucleated RBC % 0, Syphilis Total Ab Non- reactive, Blood Type O POSITIVE, Antibody Screen NEGATIVE Physical Exam Const alert, oriented x3, no apparent distress, average body habitus, healthy appearing and well nourished HEENT normocephalic and moist oral mucous membranes Eyes PERRL Neck full ROM Resp normal respiratory effort, no retractions and no use of accessory muscles GI GI Narrative: Soft, nontender, uterus firm and below umbilicus Extremity normal to inspection and full ROM Neuro moves all extremities and no focal motor deficits Psych mental status grossly normal, affect normal, speech normal and activity/motor behavior normal Assessment & Plan (1) Vaginal delivery: PLAN: Postoperative day 1. Breast-feeding. Pain well controlled. 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
--- NOTE | 2023-05-16 08:50 | DCINST_ITS ---
Discharge Instructions Diet Discharge Diet: No restrictions Activity Discharge Activity: Return to Normal Activity, May Drive and May Shower May resume sexual activity in: 6-8 weeks Weight Bearing Status: Weight bearing as tolerated Dressing / Incision Call your doctor if your incision/area has: Continuous Slow Oozing and Foul Smelling Discharge Call your doctor if you observe: Fever of 101 or Higher, Shortness of breath and Chest pain Follow Up Care Please Follow Up With: Ty Tellez MD When: 4 to 6 weeks Test Results: Test results from this visit will be discussed in further detail at your follow- up appointment, if applicable. Discharge Plan Admission Admit Date/Time: 05/15/23 09:16 Attending Provider: Ty Tellez Discharge Orders/Prescriptions Prescriptions: No Action Prenatabs FA 1 TABLET tablet 1 tab PO DAILY Disposition Discharge Orders: Discharge Patient (Routine); Ordered 05/16/23 Ordered By: Dr. Ty Tellez
[2023-05-16 12:36] VITALS: BP 106/55; PULSE 82; RESP 16; TEMP 36.6
== END 2023-05-16 12:56 | disposition home or self-care (01) | DRG 807 ==
LOC: WPOUT 09:23 → WP 09:24 → WPOUT 09:26 → WP 09:52
PROVIDERS: Admitting Provider Obstetrics & Gynecology; Referring Provider Obstetrics & Gynecology; Visit Provider Obstetrics & Gynecology
DX: O24.420 Gestational diabetes mellitus in childbirth, diet controlled (principal); Z37.0 Single live birth; O77.0 Labor and delivery complicated by meconium in amniotic fluid; Z3A.39 39 weeks gestation of pregnancy
CPT/HCPCS: 59050; 85025; 86780; 86850; 86900; 86901; 99221; J7120; G0378

== ENCOUNTER → 2023-06-30 | Outpatient (CLI) | payer OTHER, SELFPAY ==
[2023-07-05 15:08] LABS: HPV APTIMA, High Risk Negative (Negative)
== END | disposition home or self-care (01) ==
LOC: WOBLAB 10:02
PROVIDERS: PCP Obstetrics & Gynecology; Visit Provider Obstetrics & Gynecology
DX: Z12.4 Encounter for screening for malignant neoplasm of cervix (principal)
CPT/HCPCS: 87624; 88175; G0145

== ENCOUNTER 2024-12-17 04:22 | Emergency (ER) | payer OTHER, SELFPAY ==
[2024-12-17 04:23] VITALS: BP 122/69; PULSE 128; RESP 14; TEMP 37.4; O2SAT 97; BMI 25.7
--- NOTE | 2024-12-17 04:40 | EDS_ITS ---
HPI History of Present Illness Chief Complaint: Sore Throat Narrative Narrative: Chief complaint and HPI: Sore throat. 34-year-old female with no significant past medical history presents for evaluation of sore throat. Patient states she was recently diagnosed with strep pharyngitis and bilateral ear infections. She states that she is currently on amoxicillin. Patient states she has about 2 days left of antibiotics but still endorses a sore throat. Associated symptom is cough. She denies any chest pain, shortness of breath, abdominal pain, nausea, vomiting. Patient states overall she does not feel any improvement since being on antibiotics. She was negative for COVID, flu, RSV. Review of systems: See HPI Medications: As listed on the chart Allergies: As listed on the chart PFSH: Per chart Vital signs: As listed on the chart. Reviewed. Physical exam: Gen: A&O x3, NAD Head: Normocephalic, atraumatic Eyes: No sclera icterus, conjunctiva clear, PERRL, EOMI ENT: TMs clear BL, moist mucous membranes, posterior oropharynx mildly erythematous, uvula midline, tonsils not enlarged, no tonsillar exudates Neck: Trachea midline, No JVD, Full ROM, No meningismus CV: RRR, no murmurs, no peripheral edema Resp: Lungs CTA BL, no w/r/c, + dry cough GI: Abd soft, non-distended, non-tender, no r/r/g Musc: Full ROM, no deformity Skin: Warm, dry, no rash Neuro: Alert, oriented, grossly intact, sensation intact Psych: Cooperative, appropriate mood and affect PFS PFS Medical History no medical history Home Medications ?Medication ?Instructions ?Recorded ?Last Taken ?Type amoxicillin 875 mg tablet 875 mg PO BID 12/17/24 Unkno wn History norgestimate 0.25 mg-ethinyl 1 tab PO DAILY 12/17/24 U nknown History estradiol 35 mcg tablet Allergy/AdvReac Type Severity Reaction Status Date / Time No Known Allergies Allergy Verified 12/17/24 04:26 Surgical History (Updated 06/04/21 @ 07:52 by Nahed Rodriguez) [place] teeth removed Social History Smoking Status: Never smoker EXAM Physical Exam Const Vital Signs: 12/17/24 04:23 Temperature 99.3 F H Temperature Source Oral Pulse Rate 128 H Respiratory Rate 14 Blood Pressure 122/69 H Blood Pressure Mean 86 Pulse Ox 97 Oxygen Delivery Method Room Air MDM MDM MDM Narrative Medical decision making narrative: 34-year-old female with no significant past medical history presents for evaluation of sore throat. Differential diagnosis includes but is not limited to strep pharyngitis, viral illness, bronchitis, pneumonia. Ibuprofen ordered for symptoms. Will repeat strep PCR and obtain chest x-ray. Strep PCR negative. Patient's antibiotics have resulted the infection. Chest x-ray without pneumonia, effusion, cardiomegaly, pneumothorax. I suspect patient's symptoms are likely secondary to viral illness. Patient was updated of all her results and confirmed understanding the plan. Follow-up with PCP. Return precautions explained. She was offered prescription for cough medicine but declined. She was educated to take [id number] Mucinex. Patient stable to discharge home. Repeat vitals on discharge showed resolved tachycardia. Impression: 1. Sore throat 2. Cough 3. Suspect viral syndrome 4. Recent strep pharyngitis Radiography Diagnostic Testing: Clinical Impression(s) from Imaging Studies Chest X-Ray 12/17/24 05:18 IMPRESSION: NEGATIVE CHEST Reading Location: [facility] Discharge Plan Triage Chief Complaint: Sore Throat ED Provider: Yasir Martinez Dx/Rx/DC Orders Clinical Impression: Viral syndrome Instructions: ED Viral Syndrome (Adult) Prescriptions: No Action norgestimate-ethinyl estradiol 0.25-35 mg-mcg tablet 1 tab PO DAILY amoxicillin 875 mg tablet 875 mg PO BID Primary Care Provider: Care Physician,No Primary Referrals: Ty Tellez MD [Med Staff - Active Staff] - Dmitry Calixto MD [Med Staff - Active Staff] - 3-5 Days Activity Restrictions/Additional Instructions: Follow-up with your primary care physician. [id number] Mucinex as needed for cough. Return back to the ED if symptoms change or worsen. If you do not have a PCP follow-up with the 1 provided above. Print Language: Vietnamese Disposition Disposition: Home, Self Care
[2024-12-17] MEDS: Ibuprofen 200 MG Tablet 400 MG PO (04:58)
--- NOTE | 2024-12-17 05:18 | RAD_ITS ---
PROCEDURE: CHEST PA AND LATERAL REASON FOR EXAM: 34-year-old female, cough. TECHNIQUE: Frontal and lateral views of the chest. COMPARISON: None. FINDINGS: The heart size is normal. The mediastinal contour is unremarkable. No focal consolidation, pleural effusion or pneumothorax. The bones are unremarkable. RAD/Chest PA and Lateral IMPRESSION: NEGATIVE CHEST Reading Location: [facility]
[2024-12-17 06:50] VITALS: BP 119/78; PULSE 91; RESP 16; TEMP 37; O2SAT 99
== END 2024-12-17 06:56 | disposition home or self-care (01) ==
PROVIDERS: Emergency Provider Surgery; Visit Provider Surgery
DX: J02.9 Acute pharyngitis, unspecified (principal); B34.9 Viral infection, unspecified
CPT/HCPCS: 71046; 87651; 99283